=== PATIENT | female | born 1995 | race African-American/Black ===

== ENCOUNTER 2018-08-29 13:47 | Emergency (ER) | payer OTHER ==
[2018-08-29 14:22] VITALS: BP 137/74; PULSE 91; TEMP 98.6; BMI 18.0
--- NOTE | 2018-08-29 14:53 | PDOC ---
History of Present Illness - General Chief Complaint: Wound Stated Complaint: PAIN Time Seen by Provider: 08/29/18 14:45 - History of Present Illness Initial Comments: 08/29/18 14:50 22-year-old female without comorbidities presents for evaluation of a painful mass on her left breast 2 days without systemic symptoms. Past History - Past Medical History Allergies/Adverse Reactions: Allergies Allergy/AdvReac Type Severity Reaction Status Date / Time No Known Allergies Allergy Verified 08/29/18 14:18 Home Medications: Ambulatory Orders Cephalexin [Keflex] 500 mg PO QID #40 capsule 08/29/18 Naproxen Sodium [Aleve] 220 mg PO BID PRN 08/29/18 Sulfamethoxazole/Trimethoprim [Bactrim Ds -] 1 tab PO BID #14 tablet 08/29/18 COPD: No - Immunization History Td Vaccination: Yes Immunization Up to Date: Yes - Suicide/Smoking/Psychosocial Hx Smoking Status: No Smoking History: Never smoked Number of Cigarettes Smoked Daily: 0 Cigars Per Day: 0 Review of Systems - Review of Systems Integumentary: Yes: See HPI *Physical Exam - Vital Signs Last Vital Signs Temp Pulse Resp BP Pulse Ox 98.6 F 91 H 16 137/74 100 08/29/18 14:20 08/29/18 14:20 08/29/18 14:20 08/29/18 14:20 08/29/18 14:20 - Physical Exam Comments: 08/29/18 14:51 This exam was done with the patient's mother in the room she was fully clothed for the examination. The left side of the superior medial aspect of the breast is normal skin color and temperature. There is no induration of the skin. There is a tender nodule about 1 cm circumferentially about the superior medial aspect of the left breast. Medical Decision Making - Medical Decision Making 08/29/18 14:51 This may represent a breast cyst versus a forming abscess. I recommended warm compresses place the patient on Bactrim and Keflex. She will follow-up with general surgery. *DC/Admit/Observation/Transfer Diagnosis at time of Disposition: Cyst, breast - Discharge Dispostion Disposition: HOME Condition at time of disposition: Stable Decision to Admit order: No - Prescriptions Prescriptions: Cephalexin [Keflex] 500 mg PO QID #40 capsule Sulfamethoxazole/Trimethoprim [Bactrim Ds -] 1 tab PO BID #14 tablet - Referrals Referrals: Guzman Arana MD [Staff Physician] - - Patient Instructions Additional Instructions: Pain. Follow-up with general surgery in 1-2 days for further evaluation and treatment options. Please take the antibiotics as directed. Warm compresses 5-6 times a day as we discussed. - Post Discharge Activity
== END 2018-08-29 15:05 | disposition home or self-care (01) ==
LOC: JERFT 13:47
DX: N60.02 Solitary cyst of left breast (principal)
CPT/HCPCS: 99281-25

== ENCOUNTER 2019-01-02 22:31 | Emergency (ER) | payer OTHER ==
[2019-01-02 22:47] VITALS: BP 132/82; PULSE 103; TEMP 99.3; BMI 34.4
--- NOTE | 2019-01-02 23:22 | PDOC ---
History of Present Illness - General Chief Complaint: Ear Problem Stated Complaint: POSSIBLE EAR INFECTION BILAT Time Seen by Provider: 01/02/19 23:19 History Source: Patient Exam Limitations: No Limitations - History of Present Illness Initial Comments: 01/02/19 23:25 HISTORY OF PRESENT ILLNESS: 23-year-old woman who denies medical history presents emergency department for evaluation of clogged feeling in both ears for the past 3 days. Patient reports having intermittent sore throat over that time but denies any fevers. Patient denies any headaches, dizziness, blurry vision, chest pain, shortness of breath. No recent travel or sick contacts. PAST MEDICAL HISTORY: Denies past medical history SURGICAL HISTORY: Denies ALLERGIES: No known drug allergies REVIEW OF SYSTEMS General/Constitutional: Denies fever or chills. Denies weakness, weight change. HEENT: see HPI Cardiovascular: Denies chest pain or shortness of breath. Respiratory: Denies cough, wheezing, or hemoptysis. Gastrointestinal: Denies nausea, vomiting, diarrhea or constipation. Denies rectal bleeding. Genitourinary: Denies dysuria, frequency, or change in urination. Musculoskeletal: Denies joint or muscle swelling or pain. Denies neck or back pain. Skin and breasts: Denies rash or easy bruising. Neurologic: Denies headache, vertigo, loss of consciousness, or loss of sensation. Psychiatric: Denies depression or anxiety. Endocrine: Denies increased thirst. Denies abnormal weight change. Hematologic/Lymphatic: Denies anemia, easy bleeding, or history of blood clots. Allergic/Immunologic: Denies hives or skin allergy. Denies latex allergy. PHYSICAL EXAM General Appearance: Well-appearing, appropriately dressed. No apparent distress , no intoxication. HEENT: EOMI, PERRLA, normal voice, pharynx normal. No conjunctival pallor. No photophobia, scleral icterus. Bilateral TMs bulging with effusion present bilaterally. Tragal or mastoid tenderness present bilaterally. No discharge or drainage is present. Neck: Supple. Trachea midline. No tenderness, rigidity, carotid bruit, stridor , lymphadenopathy, or thyromegaly. Respiratory/Chest: Lungs CTAB. No shortness of breath, chest tenderness, respiratory distress, accessory muscle use. No crackles, rales, rhonchi, stridor , wheezing, dullness Cardiovascular: RRR. S1, S2. No JVD, murmur, bradycardia, tachycardia. Neurologic: clinical sales consultant II-XII intact. Fully oriented, alert. Appropriate mood/affect. Motor strength 5/5. No appreciable EOM palsy, facial droop or sensory deficit. Past History - Past Medical History Allergies/Adverse Reactions: Allergies Allergy/AdvReac Type Severity Reaction Status Date / Time No Known Allergies Allergy Verified 08/29/18 14:18 Home Medications: Ambulatory Orders Cephalexin [Keflex] 500 mg PO QID #40 capsule 08/29/18 Naproxen Sodium [Aleve] 220 mg PO BID PRN 08/29/18 Sulfamethoxazole/Trimethoprim [Bactrim Ds -] 1 tab PO BID #14 tablet 08/29/18 Amox-Tr/K Cl [Augmentin - 875Mg Tablet] 1 tab PO BID #20 tablet 01/02/19 COPD: No - Immunization History Td Vaccination: Yes Immunization Up to Date: Yes - Suicide/Smoking/Psychosocial Hx Smoking Status: No Smoking History: Never smoked Number of Cigarettes Smoked Daily: 0 Cigars Per Day: 0 *Physical Exam - Vital Signs Last Vital Signs Temp Pulse Resp BP Pulse Ox 99.3 F 103 H 20 132/82 100 01/02/19 22:41 01/02/19 22:41 01/02/19 22:41 01/02/19 22:41 01/02/19 22:41 Medical Decision Making - Medical Decision Making 01/02/19 23:35 A/P: 23-year-old woman with bilateral otitis media Augmentin 875 mg as an outpatient Discharge home *DC/Admit/Observation/Transfer Diagnosis at time of Disposition: Otitis media of both ears Qualifiers: Otitis media type: unspecified Qualified Code(s): H66.93 - Otitis media, unspecified, bilateral - Discharge Dispostion Disposition: HOME Condition at time of disposition: Fair Decision to Admit order: No - Prescriptions Prescriptions: Amox-Tr/K Cl [Augmentin - 875Mg Tablet] 1 tab PO BID #20 tablet - Referrals Referrals: Rubi Camp MD [Primary Care Provider] - - Patient Instructions Additional Instructions: Take Augmentin 875 mg twice a day as prescribed. Take Tylenol and Motrin as needed for fever and pain. Follow manufacturers instructions for appropriate dosage. Make an appointment with your doctor for reevaluation symptoms do not improve in the next 7 days. Return to emergency department for worsening pain, fevers even while giving medication, drainage from the ears, or any other concerns. Thank you very much for choosing us to provide your child's emergent healthcare needs. - Post Discharge Activity
--- NOTE | 2019-01-02 23:48 | PDOC ---
*Physical Exam - Vital Signs Last Vital Signs Temp Pulse Resp BP Pulse Ox 99.3 F 103 H 20 132/82 100 01/02/19 22:41 01/02/19 22:41 01/02/19 22:41 01/02/19 22:41 01/02/19 22:41 Medical Decision Making - Medical Decision Making 01/02/19 23:48 Patient seen by the advanced practice provider under my direct supervision. Ancillary testing reviewed as necessary. I agree with plan as outlined by the advanced practice provider. *DC/Admit/Observation/Transfer Diagnosis at time of Disposition: Otitis media of both ears Qualifiers: Otitis media type: unspecified Qualified Code(s): H66.93 - Otitis media, unspecified, bilateral - Discharge Dispostion Disposition: HOME Condition at time of disposition: Fair - Prescriptions Prescriptions: Amox-Tr/K Cl [Augmentin - 875Mg Tablet] 1 tab PO BID #20 tablet - Referrals Referrals: Rubi Camp MD [Primary Care Provider] - - Patient Instructions Additional Instructions: Take Augmentin 875 mg twice a day as prescribed. Take Tylenol and Motrin as needed for fever and pain. Follow manufacturers instructions for appropriate dosage. Make an appointment with your doctor for reevaluation symptoms do not improve in the next 7 days. Return to emergency department for worsening pain, fevers even while giving medication, drainage from the ears, or any other concerns. Thank you very much for choosing us to provide your child's emergent healthcare needs. - Post Discharge Activity
== END 2019-01-03 00:16 | disposition home or self-care (01) ==
LOC: JER 22:31
DX: H66.93 Otitis media, unspecified, bilateral (principal)
CPT/HCPCS: 99281-25

== ENCOUNTER 2019-07-06 13:51 | Emergency (ER) | payer OTHER ==
[2019-07-06 14:22] VITALS: BP 127/88; PULSE 93; TEMP 98.1; BMI 43.5
--- NOTE | 2019-07-06 15:52 | PDOC ---
History of Present Illness - General Chief Complaint: Cold Symptoms Stated Complaint: RT EAR PAIN Time Seen by Provider: 07/06/19 15:31 History Source: Patient - History of Present Illness Initial Comments: 07/06/19 16:10 Chief complaint: Throat and ear pain Patient is a healthy 23-year-old female who got sick about a week ago with upper respiratory symptoms. No fever. Minimal cough. Patient now feels worse with sore throat and right ear pain. Patient was seen here in April for ear infection. No shortness of breath. Patient has not taken pain medicine. No difficulty swallowing. Able to eat and drink GENERAL/CONSTITUTIONAL: No fever, weakness. dizziness HEAD, EYES, EARS, NOSE AND THROAT: No change in vision. + ear pain, nodischarge. +sore throat. CARDIOVASCULAR: No chest pain RESPIRATORY: No shortness of breath + cough GASTROINTESTINAL: No pain, nausea, vomiting, diarrhea or constipation GENITOURINARY: No dysuria MUSCULOSKELETAL: No neck or back pain SKIN: No rash NEUROLOGIC: No headache, vertigo, loss of consciousness, or loss of sensation. GENERAL: The patient is awake, alert, and fully oriented, in no acute distress. HEAD: Normal with no signs of trauma. EYES: Pupils equal, round and reactive to light, sclera anicteric, conjunctiva clear. ENT: Left ear clear, TM normal, right ear clear, mild erythema to the TM, pharynx: Mild erythema, no exudate, uvula midline NECK: supple CHEST: clear, nontender, rr ABD: soft, nontender BACK: no tenderness or signs of injury EXTREMITIES: Normal range of motion, no edema. NEUROLOGICAL: Normal speech, normal gait. SKIN: Warm, Dry Past History - Past Medical History Allergies/Adverse Reactions: Allergies Allergy/AdvReac Type Severity Reaction Status Date / Time No Known Allergies Allergy Verified 07/06/19 14:22 Home Medications: Ambulatory Orders Cephalexin [Keflex] 500 mg PO QID #40 capsule 08/29/18 Naproxen Sodium [Aleve] 220 mg PO BID PRN 08/29/18 Sulfamethoxazole/Trimethoprim [Bactrim Ds -] 1 tab PO BID #14 tablet 08/29/18 Amox-Tr/K Cl [Augmentin - 875Mg Tablet] 1 tab PO BID #20 tablet 01/02/19 Amoxicillin 875 mg PO BID #20 tablet 07/06/19 COPD: No - Immunization History Td Vaccination: Yes Immunization Up to Date: Yes - Psycho Social/Smoking Cessation Hx Smoking Status: No Smoking History: Never smoked Have you smoked in the past 12 months: No Number of Cigarettes Smoked Daily: 0 Cigars Per Day: 0 Information on smoking cessation initiated: No Hx Alcohol Use: No Drug/Substance Use Hx: No *Physical Exam - Vital Signs Last Vital Signs Temp Pulse Resp BP Pulse Ox 98.1 F 93 H 18 127/88 100 07/06/19 14:05 07/06/19 14:05 07/06/19 14:05 07/06/19 14:05 07/06/19 14:05 Medical Decision Making - Medical Decision Making 07/06/19 16:12 Healthy 23-year-old female with 1 week of URI symptoms, now with worsening symptoms of sore throat and right ear pain. Right TM is erythemic, throat is mildly erythemic, but no signs of abscess, no exudate and no fever. Will treat with amoxicillin. No other concerning clinical signs. Patient will follow-up with ENT as she had ear infection which in review of the EMR was bilateral and sounds like it was much worse. Discussed issues, findings, results, applicable medications and treatments and follow-up. All these were understood and all questions were answered Discharge - Discharge Information Problems reviewed: Yes Clinical Impression/Diagnosis: Ear infection Condition: Stable Disposition: HOME - Admission No - Additional Discharge Information Prescriptions: Amoxicillin 875 mg PO BID #20 tablet - Follow up/Referral Referrals: Rubi Camp MD [Primary Care Provider] - - Patient Discharge Instructions Patient Printed Discharge Instructions: DI for Middle Ear Infection-Adult Additional Instructions: Drink 2-3 L of water daily Take amoxicillin every 12 hours for 10 days, do not stop it early even if you feel better Take Tylenol 650 mg every 4 hours or Motrin 600 mg every 6 hours for fever and pain Return to the nearest ER if short of breath, unable to swallow or feeling sicker Follow-up with the ENT doctor as discussed, you can see the one you sister sees or whoever takes your insurance and the group. Follow the instructions to go [facility] and follow the instructions to make an appointment - Post Discharge Activity
[2019-07-06] MEDS ORDERED: ACETAMINOPHEN 325 MG TABLET (FP) PO ONE (15:53)
[2019-07-06] MEDS ORDERED: ACETAMINOPHEN 325 MG TABLET (FP) ONE (15:56)
== END 2019-07-06 16:02 | disposition home or self-care (01) ==
LOC: JERFT 13:51
DX: H66.91 Otitis media, unspecified, right ear (principal)
CPT/HCPCS: 99283-25

== ENCOUNTER 2022-08-11 22:15 | Emergency (ER) | payer OTHER ==
[2022-08-11 22:20] VITALS: BP 131/84; PULSE 84; RESP 18; TEMP 98.8; BMI 41.5
== END 2022-08-11 23:47 | disposition home or self-care (01) ==
LOC: JER 22:15
DX: R06.02 Shortness of breath (principal)
CPT/HCPCS: 99281-25

== ENCOUNTER 2022-11-26 22:28 | Emergency (ER) | payer OTHER ==
[2022-11-26 22:33] VITALS: BP 134/88; PULSE 100; RESP 19; TEMP 98.6; BMI 41.9
[2022-11-26 23:13] LABS: ARTERIAL BLD GAS O2 SATURATION 97.1 % (95-98); ARTERIAL BLOOD GAS PO2 90.4 mmHg (80-100); ARTERIAL BLOOD GAS pH 7.419 (7.350-7.450)
== END 2022-11-27 00:07 | disposition home or self-care (01) ==
LOC: JER 22:28
DX: R51.9 Headache, unspecified (principal); R11.2 Nausea with vomiting, unspecified; Z77.098 Contact with and (suspected) exposure to other hazardous, chiefly nonmedicinal, chemicals
CPT/HCPCS: 36600; 82375; 82803; 99283-25

== ENCOUNTER 2023-07-24 20:34 | Emergency (ER) | payer OTHER ==
[2023-07-24 20:41] VITALS: BP 131/69; PULSE 70; RESP 19; TEMP 97.7; BMI 32.3
[2023-07-24] MEDS ORDERED: AMOXICILLIN 500 MG CAPSULE (FP) PO ONE (22:19)
[2023-07-24 23:02] LABS: HIV INTERPRETATION NEGATIVE (NEGATIVE)
== END 2023-07-24 22:24 | disposition home or self-care (01) ==
LOC: JERFT 20:34
DX: Z77.21 Contact with and (suspected) exposure to potentially hazardous body fluids (principal)
CPT/HCPCS: 36415; 86704; 86803; 87340; 87389; 87517; 99283-25